=== PATIENT | male | born 1995 | race Caucasian/White ===

== ENCOUNTER 2025-01-23 20:53 | Emergency (ER) | payer OTHER ==
[~2025-01-23] VITALS: Ht 188 cm; Wt 66.0 kg
--- NOTE | 2025-01-23 21:36 | Physician Documentation ---
History of Present Illness ~ Chief Complaint: Headache Stated Complaint: INGESTION ERROR Time Seen by MD: 21:21 HPI 29-year-old male presents to the ED with a complaint of chest tightness, dizziness , headaches and general malaise. 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 He states that the cam that he works in has been filled with the smell of coolant for an extended period of time. States that he has been working with the company to repair the issue but continues to have symptoms and ongoing exposure. He isn't sure what the type of cooling it is but the most common type of colon in these machines is polyethylene glycol Day of Onset: Jan 23, 2025 Medication Reconciliation Allergies: Coded Allergies: No Known Allergies (Unverified , 01/23/25) Review of Systems All Other Systems at this time: Reviewed and Negative ROS As stated above in the HPI, otherwise all systems are reviewed and negative. Physical Exam Vital Signs: Temperature: 98.0, Heart Rate: 62, Respiratory Rate: 16, BP: 111/65, Pulse Oximetry: 97, Weight: 66.000 Physical Exam General: Alert, no apparent distress. HEENT: PERRL, EOMI, no injection, moist mucous membranes. Neck: Full range of motion. Respiratory: Lungs clear, no respiratory distress. Chest: No accessory muscle use. Cardiovascular: Regular rate and rhythm, no murmurs. Gastrointestinal: Soft, nontender, nondistended. Bowels sounds present. Extremities: Normal range of motion, no deformity. Neurologic: Oriented x4. Psychiatric: Normal mood and affect. Skin: Normal color, warm and dry. No edema, no ecchymosis. Progress Results/Orders Results/Orders Orders - MARIN SENA [employer] Urinalysis, Cult If Indicated (01/23/25 21:31) Chest,Single View (01/23/25 21:37) Abg (Arterial Blood Gas) (01/23/25 ) Abg (Arterial Blood Gas) (01/23/25 21:45) Completed Orders - MARIN SENA [employer] Cbc/Diff (01/23/25 21:31) Chest,Single View (01/23/25 21:37) CMP (01/23/25 21:37) PHOS (01/23/25 21:37) Vital Signs 10/2/25 10/2/25 21:07 23:28 Temp 98.0 98.1 Pulse 62 66 Resp 16 18 B/P (MAP) 111/65 122/68 Pulse Ox 97 99 Laboratory Tests Test 01/23/25 21:37 01/23/25 22:26 White Blood Count 5.2 Red Blood Count 5.11 Hemoglobin 15.3 Hematocrit 44.3 Mean Corpuscular Volume 86.5 Mean Corpuscular Hemoglobin 29.9 Mean Corpuscular Hemoglobin Concent 34.6 Red Cell Distribution Width 13.4 Platelet Count 282 Mean Platelet Volume 8.1 Neutrophils (%) (Auto) 52.8 Lymphocytes (%) (Auto) 37.3 Monocytes (%) (Auto) 7.4 Eosinophils (%) (Auto) 1.5 Basophils (%) (Auto) 1.0 Neutrophils # (Auto) 2.7 Lymphocytes # (Auto) 1.9 Monocytes # (Auto) 0.4 Eosinophils # (Auto) 0.1 Basophils # (Auto) 0.0 CBC Comment Sodium Level 143 Potassium Level 4.1 Chloride Level 104 Carbon Dioxide Level 31.7 Anion Gap 7 L Blood Urea Nitrogen 19 H Creatinine 1.15 H Estimated GFR/1.73 m2 75 BUN/Creatinine Ratio 16.5 Glucose Level 111 H Calcium Level 8.9 Phosphorus Level 4.6 H Total Bilirubin 1.4 H Aspartate Amino Transf (AST/SGOT) 26 Alanine Aminotransferase (ALT/SGPT) 33 Alkaline Phosphatase 155 H Total Protein 8.0 Albumin 4.4 Globulin 3.6 Albumin/Globulin Ratio 1.2 Chemistry Comments Blood Gas Specimen Type Venous Blood Gas Puncture Site Lr O2 Saturation 76.8 *L Arterial Blood pH (Temp corrected) 7.422 Arterial Blood pCO2 (Temp correct) 40.4 Arterial Blood pO2 (Temp corrected) 39.2 *L Arterial Blood PO2/FiO2 Ratio 1.90 Arterial Blood HCO3 25.8 Arterial Blood Base Excess 1.2 Arterial Blood Oxyhemoglobin 76.5 L Arterial Blood Carboxyhemoglobin 0.3 L Arterial Blood Methemoglobin 0.1 Arterial Blood Deoxyhemoglobin 23.1 H Mike Test Positive Blood Gas Hemoglobin 15.4 Blood Gas Temperature 36.7 Blood Gas Liter Flow 0 Blood Gas Modality Room air FiO2 21.0 Blood Gas Critical Value Called To Hector hameed Medical Decision Making Findings Patient's laboratory values were reassuring secondary to suspected ethylene glycol exposure his anion gap was low and an elevated anion gap would be expected in an acute case of ethylene glycol exposure. Differential Dx:Considerations: Include: STALEY-Cluster, STALEY-Migraine, STALEY- Hypertensive, STALEY-Muscular contraction, STALEY-Post lumbar puncture, Carbon monoxide toxicity, Close head injuyr, CVA, Fever induced, Hemorrhage-Epidural, Hemorrhage-Intracerebral, Hemorrhage-Subarachnoid, Hemorrhage-Subdural, Mass lesion, Meningitis, Post-traumtic, Pseudotumor cerebri, Sinusitis, Temporal arteritis, Trigeminal neuralgia, Other Departure Disposition: 01 HOME / SELF CARE / HOMELESS Impression: Primary Impression: Headache Discharge Instructions: Headache Additional Instructions: As discussed please refrain from any further exposure to coolant or aantifreeze. Return to the ED if you have any worsening symptoms Referrals: NO PRIMARY CARE PROVIDER (PCP) Education Educated: Patient Educated regarding: diagnosis Signature Scribe Signature: h Attestation: Scribed for Marin [employer] by Marin Dumont NP . 01/26/25 13:46 MARIN SENA NP Jan 23, 2025 21:36
[2025-01-23 21:56] LABS: MEAN PLATELET VOLUME 8.1 FL (7.4-10.4); RED CELL DISTRIBUTION WIDTH 13.4 % (11.5-14.5)
[2025-01-23 22:06] LABS: CREATININE 1.15 MG/DL (0.60-1.10); PHOSPHORUS 4.6 MG/DL (2.3-4.5); TOTAL CARBON DIOXIDE 31.7 MMOL/L (24-32); eCRCL 88 ML/MIN; eGFR 75 ML/MIN
--- NOTE | 2025-01-23 22:25 | RADIOLOGY REPORT ---
CHEST RADIOGRAPH Indication: chest tightness Technique: Single frontal view of the chest was obtained Comparison: None FINDINGS: Lines and Tubes: None Lungs: No focal consolidation. Pleura: No effusion. No pneumothorax. Cardiomediastinal contours: Unremarkable Bones: No acute osseous abnormality. IMPRESSION: No acute cardiopulmonary disease.
[2025-01-23 22:31] LABS: ABG BASE EXCESS 1.2 mmol/L (-2.0-3.0); ABG HCO3 25.8 mmol/L (21.0-28.0); ABG OXYGEN SATURATION 76.8 % (94.0-98.0); ABG PCO2 (T) 40.4 mmHg (35.0-48.0); ABG PH (T) 7.422 (7.350-7.450); ABG PO2 (T) 39.2 mmHg (83.0-108.0); ALLEN'S TEST POSITIVE; FCOHb 0.3 % (0.5-1.5); FHHb 23.1 % (0.0-5.0); FIO2 21.0 mmHg/%; FLOW 0 L/min; FMetHb 0.1 % (0.0-1.5); FO2Hb 76.5 % (94.0-98.0); MODE ROOM AIR; PATIENT TEMPERATURE 36.7; TOTAL HEMOGLOBIN 15.4 G/dl (13.5-17.5)
[2025-01-23 23:28] VITALS: BP 122/68; PULSE 66; RESP 18; TEMP 98.1; O2SAT 99
== END 2025-01-23 23:30 | disposition home or self-care (01) ==
LOC: ER 20:55
DX: R51.9 Headache, unspecified (principal); R07.89 Other chest pain; R42 Dizziness and giddiness
CPT/HCPCS: 36415; 36600; 71045; 80053; 82803; 84100; 85018; 85025; 99284